=== PATIENT | male | born 1945 | race Caucasian/White ===

== ENCOUNTER 2019-11-20 15:37 | Inpatient (IN) | payer OTHER, MEDICARE ==
[~2019-11-20] VITALS: Ht 182.9 cm; Wt 70.2 kg
[2019-11-20 16:07] LABS: BASOPHILS ABSOLUTE AUTO 0.04 K/mm3 (0.00-0.23); BASOPHILS PERCENT AUTO 0 % (0-2); EOSINOPHILS ABSOLUTE AUTO 0.02 K/mm3 (0.00-0.68); EOSINOPHILS PERCENT AUTO 0 % (0-6); Hematocrit 49.3 % (37.0-53.0); Hemoglobin 15.8 g/dL (13.5-17.5); IMMATURE GRAN ABSOLUTE AUTO 0.07 K/mm3 (0.00-0.10); IMMATURE GRAN PERCENT AUTO 1 % (0-1); LYMPHOCYTES ABSOLUTE AUTO 0.61 K/mm3 (0.84-5.20); LYMPHOCYTES PERCENT AUTO 4 % (21-46); MONOCYTES ABSOLUTE AUTO 1.14 K/mm3 (0.16-1.47); MONOCYTES PERCENT AUTO 8 % (4-13); Mean Corpuscular HGB 29.7 pg (26.0-34.0); Mean Corpuscular Volume 93 fL (80-100); Mean Platelet Volume 12.2 fL (9.1-12.4); NEUTROPHILS ABSOLUTE AUTO 13.37 K/mm3 (1.96-9.15); NEUTROPHILS PERCENT AUTO 88 % (41-73); Platelet Count 197 K/mm3 (150-400); RDW Coefficient Variation 12.8 % (11.7-14.2); RDW Standard Deviation 43.7 fL (35.1-46.3); Red Blood Cell Count 5.32 M/mm3 (4.30-5.90); White Blood Cell Count 15.25 K/mm3 (4.00-11.30)
[2019-11-20 16:21] LABS: Alanine Aminotransfer (ALT/SGP 25 U/L (12-78); Albumin, Blood 3.6 g/dL (3.4-5.0); Albumin/Globulin Ratio 0.8 (0.8-1.8); Alk Phos 130 U/L (50-136); Anion Gap 6 mmol/L (6-16); Aspartate Aminotrans (AST/SGOT 14 U/L (12-37); Blood Urea Nitrogen 17 mg/dL (8-24); Bun/Creatinine Ratio 10.4 (12.0-20.0); CO2, Blood 22 mmol/L (21-32); Calcium, Blood 10.5 mg/dL (8.5-10.1); Chloride, Blood 111 mmol/L (98-108); Creatinine, Blood 1.63 mg/dL (0.60-1.20); Globulin, Blood 4.4 g/dL (2.2-4.0); Glomerular Filtration Rate 44 (60-); Glucose, Blood 252 mg/dL (70-99); Potassium, Blood 3.9 mmol/L (3.5-5.5); Sodium, Blood 139 mmol/L (136-145); Troponin I <0.015 ng/mL (0.000-0.040)
[2019-11-20 17:00] LABS: Source, Urine Clean Catch
[2019-11-20 17:04] LABS: Bilirubin, Urine Neg (Neg); Blood, Urine 5+ (Neg); Glucose Qualitative, Urine Neg (Neg); Ketones, Urine Neg (Neg); Leukocyte Esterase, Urine 3+ (Neg); Nitrite, Urine Neg (Neg); Protein, Urine 3+ (Neg); Specific Gravity, Urine 1.005 (1.003-1.022); Urobilinogen, Urine NORM (Normal)
[2019-11-20 17:13] LABS: Appearance, Urine Hazy (Clear); Color, Urine Yellow (P-Yellow)
[2019-11-20 17:16] LABS: Bacteria Few /hpf; Squamous Epithelial Cells Few /hpf (Few); White Blood Cells, Urine 50-100 /hpf (0-5)
[2019-11-20] MEDS ORDERED: Aspir 8181 MG PO (17:42)
[2019-11-20] MEDS ORDERED: Vitamin D2000 UNIT PO (17:44)
[2019-11-20] MEDS ORDERED: ATOR40TA PO (17:44)
[2019-11-20] MEDS ORDERED: B-121000 MC3 PO (17:45)
[2019-11-20] MEDS ORDERED: CYCLOBENZAPRINE5 MG PO (17:46)
[2019-11-20] MEDS ORDERED: LEVSOD25 PO (17:47)
[2019-11-20] MEDS ORDERED: Lithium Carbon150 MG PO (17:47)
[2019-11-20] MEDS ORDERED: LITH300C PO (17:47)
[2019-11-20] MEDS ORDERED: MIRT15 PO (17:48)
[2019-11-20] MEDS ORDERED: CLOTRIMAZOLE10 ML TOP (17:49)
[2019-11-20] MEDS ORDERED: Triple Antibio1 EACH TOP (17:51)
[2019-11-20 20:23] LABS: Lithium 0.36 mmol/L (0.60-1.20)
--- NOTE | 2019-11-21 04:26 | NUR ---
SHIFT SUMMARY- PT. ARRIVED FROM ED VIA STRETCHER. CONFUSED AND UNABLE TO ANSWER QUESTIONS. SPOKE WITH VIA PHONE TO GATHER HISTORY. PT. WITH TMEP OF 101.4 LAST NIGHT AND ELEVATED HR. PT. NOT ORIENTED ENOUGH TO SWALLOW PILLS. NOTIFIED THERESA PACHECO BOOK SEWING MACHINE OPERATOR. RECEIVED ORDER FOR FLUID BOLUS AND TYLENOL SUPP. PT. WEAK, Q2 TURNS. SUPRAPUBIC CATHETER IN PLACE, DRAINING WELL. IV FLUIDS INFUSING. CALL LIGHT WITHIN REACH, SIDE RAILS UP X3, AND BED ALARM ON FOR SAFETY. WILL CONT TO MONITOR.
[2019-11-21 05:42] LABS: BASOPHILS ABSOLUTE AUTO 0.04 K/mm3 (0.00-0.23); BASOPHILS PERCENT AUTO 0 % (0-2); EOSINOPHILS ABSOLUTE AUTO 0.01 K/mm3 (0.00-0.68); EOSINOPHILS PERCENT AUTO 0 % (0-6); Hematocrit 43.4 % (37.0-53.0); Hemoglobin 13.6 g/dL (13.5-17.5); IMMATURE GRAN ABSOLUTE AUTO 0.04 K/mm3 (0.00-0.10); IMMATURE GRAN PERCENT AUTO 0 % (0-1); LYMPHOCYTES ABSOLUTE AUTO 1.22 K/mm3 (0.84-5.20); LYMPHOCYTES PERCENT AUTO 12 % (21-46); MONOCYTES ABSOLUTE AUTO 1.12 K/mm3 (0.16-1.47); MONOCYTES PERCENT AUTO 11 % (4-13); Mean Corpuscular HGB 29.6 pg (26.0-34.0); Mean Corpuscular HGB Conc 31.3 g/dL (31.5-36.5); Mean Corpuscular Volume 95 fL (80-100); Mean Platelet Volume 12.5 fL (9.1-12.4); NEUTROPHILS ABSOLUTE AUTO 7.44 K/mm3 (1.96-9.15); NEUTROPHILS PERCENT AUTO 75 % (41-73); Platelet Count 168 K/mm3 (150-400); RDW Standard Deviation 45.2 fL (35.1-46.3); Red Blood Cell Count 4.59 M/mm3 (4.30-5.90); White Blood Cell Count 9.87 K/mm3 (4.00-11.30)
[2019-11-21 06:07] LABS: Bun/Creatinine Ratio 11.4 (12.0-20.0); Creatinine, Blood 1.67 mg/dL (0.60-1.20); Potassium, Blood 4.6 mmol/L (3.5-5.5)
--- NOTE | 2019-11-21 10:00 | NUR ---
PT ATTEMPTING TO CLIMB OUT OF BED. TRIED TO REDIRECT BACK TO BED BUT PT REFUSED TO BE REDIRECTED STATING HE WAS GOING HOME AND HE COULD COME BACK ANOTHER TIME TO GET TREATMENT. MANAGED TO GET PT TO SIT IN CHAIR AND FINISH EATING HIS BREAKFAST. NO S/S ASPIRATION OR COUGHING WITH INTAKE.
--- NOTE | 2019-11-21 12:15 | NUR ---
PT SPOKE WITH THIS MORNING AND BECAME VERY UPSET THAT SHE WOULDN'T COME PICK HIM UP. RN PSYCHIATRIC IN TO SEE PT AND WAS MADE NPO. PT UPSET HE IS UNABLE TO DRINK ANY FLUIDS. ZYPREXA GIVEN EARLIER AND IT DOESN'T APPEAR TO BE EFFECTIVE AT THIS TIME. IV FLUIDS STARTED. STILL SITTING IN CHAIR. EXPLAINED TO PT FLUIDS NEED TO RUN INTO HIS IV AND NEEDS TO STAY THERE. PT PERSISTANTLY TALKING ABOUT STAFF SCAMMING HIM AND HE IS GOING TO DIVORCE HIS BECAUSE SHE WON'T PICK HIM UP. PARANOID THAT WE ARE TRYING TO GIVE HIM SOMETHING TO "PUT HIM OUT" WHILE GIVING INSULIN. NO THREATENING OR LOUD BEHAVIOR.
--- NOTE | 2019-11-21 16:30 | NUR ---
PT HAS BEEN MOVING ABOUT IN ROOM INDEPENDENTLY DESPITE UNSTEADY GAIT. HAS GONE UP TO THE SINK SEVERAL TIMES AND DRANK WATER FROM [employer] WITH HIS HAND. NO S/S OF ASPIRATION DURING THESE EPISODES. DISCOURAGED FROM DRINKING FROM [employer] BUT UNABLE TO DISUADE BEHAVIOR. IV ACCIDENTALLY PULLED OUT WHILE GETTING UP. BECAME MORE UPSET AND DIFFICULT TO REDIRECT WITH BLOOD ON FLOOR AND ATTEMPTING TO STOP THE BLEEDING SITE. ASSISTED WITH CLEANING HIM UP AND CHANGING HIS BED-HE HAD BEEN SITTING ON SIDE OF BED MOST OF AFTERNOON. ENCOURAGED HIM TO LAY DOWN AND TAKE A NAP BUT HE CONTINUED TO ESCALATE IN HIS BEHAVIOR AND SAYING HE WAS GOING TO LEAVE. PUSHED HIS WAY OUT THE ROOM DOOR. 2 STAFF WALKED WITH PT TO WINDOW WITH HIM SAYING JUST LEAVE ME ALONE. MANAGED TO GET PT TO SIT IN RECLINER CHAIR IN HALLWAY AND PLACED A VANESA VEST RESTRAINT. MD CALLED AFTER RESTRAINT PLACED.
--- NOTE | 2019-11-21 18:45 | NUR ---
SHIFT SUMMARY PT HAS BEEN SITTING IN RECLINER CHAIR SINCE RESTRAINT PLACED. HAS BEEN QUIET WITH HIS LEGS CROSSED AT THE KNEE. NEW IV STARTED AND WAS COOPERATIVE WITH CARE. TALKING TO ANOTHER PT ABOUT WHATS BEEN GOING ON. SPOKE WITH ON THE PHONE ABOUT UPDATED SITUATION.
--- NOTE | 2019-11-22 04:44 | NUR ---
SHIFT SUMMARY CONTINUES TO ATTEMPT TO GET OUT OF BED A HIGH FALL RISK, NON RECEPTIVE TO REDIRECTION. VEST REATRAINT CONTINUED FROM LAST SHIFT. LATER IN SHIFT, ATEMPTED TO PULL OUT SUPRAPUBIC CATH, NOTIFIED AND PUT IN BILAT WRIST RESTRAINTS WELL FOR SAFETY/MEDICAL REASONS. IVF INFUSED AND DISCONNECTED FROM THE TUBING HE WAS PULLING AT THAT WELL. CURRENTLY STARING AT CEILING. CALL LIGHT IN REACH. CAMERA OBS CONTINUES.
[2019-11-22 05:22] LABS: BASOPHILS ABSOLUTE AUTO 0.04 K/mm3 (0.00-0.23); BASOPHILS PERCENT AUTO 0 % (0-2); EOSINOPHILS PERCENT AUTO 1 % (0-6); Hematocrit 44.2 % (37.0-53.0); Hemoglobin 13.9 g/dL (13.5-17.5); IMMATURE GRAN ABSOLUTE AUTO 0.02 K/mm3 (0.00-0.10); IMMATURE GRAN PERCENT AUTO 0 % (0-1); LYMPHOCYTES ABSOLUTE AUTO 1.03 K/mm3 (0.84-5.20); LYMPHOCYTES PERCENT AUTO 12 % (21-46); MONOCYTES ABSOLUTE AUTO 0.91 K/mm3 (0.16-1.47); MONOCYTES PERCENT AUTO 10 % (4-13); Mean Corpuscular HGB 29.5 pg (26.0-34.0); Mean Corpuscular HGB Conc 31.4 g/dL (31.5-36.5); Mean Corpuscular Volume 94 fL (80-100); Mean Platelet Volume 12.2 fL (9.1-12.4); NEUTROPHILS PERCENT AUTO 77 % (41-73); Platelet Count 196 K/mm3 (150-400); RDW Coefficient Variation 12.8 % (11.7-14.2); RDW Standard Deviation 44.6 fL (35.1-46.3); Red Blood Cell Count 4.71 M/mm3 (4.30-5.90)
[2019-11-22 05:38] LABS: Bun/Creatinine Ratio 14.7 (12.0-20.0); Calcium, Blood 11.1 mg/dL (8.5-10.1); Creatinine, Blood 1.63 mg/dL (0.60-1.20); Potassium, Blood 3.9 mmol/L (3.5-5.5)
[2019-11-22 11:56] LABS: Lithium 0.46 mmol/L (0.60-1.20)
--- NOTE | 2019-11-22 19:39 | NUR ---
SHIFT SUMMARY: NO ACUTE CHANGES TO REPORT THIS SHIFT. PT ALERT; ORIENTED TO SELF; CONFUSED; DESIRES TO LEAVE. CAMERA ON FOR SAFETY; BILATERAL SOFT WRIST RESTRAINTS & VANESA VEST ON. SUPRA-PUBIC CATHETER IN PLACE; PATENT & DRAINING. ABX & FLUIDS CONTINUING. REPORT GIVEN TO ONCOMING RN.
--- NOTE | 2019-11-22 22:07 | NUR ---
PT WAS COMPULSIVE AND CUSSING AT STAFF AFTER WE ASSISTED PT BACK TO BED FROM THE RECLINER. PT KEEPS TUGGING AT WRIST RESTRAINTS AND ATTEMPTING TO GET OUT OF BED WITH BOTH FEET OVER THE RAILINGS MULTIPLE TIMES. PT'S IV IN LEFT WRIST AREA HAS STOPPED WORKING. ZYPREXA IM GIVEN. WILL ATTEMPT NEW IV WHEN PT HAS CALMED DOWN. WILL CONTINUE TO MONITOR.
[2019-11-23 05:07] LABS: Bun/Creatinine Ratio 17.6 (12.0-20.0); Calcium, Blood 11.6 mg/dL (8.5-10.1); Creatinine, Blood 1.82 mg/dL (0.60-1.20); Potassium, Blood 3.8 mmol/L (3.5-5.5)
--- NOTE | 2019-11-23 05:33 | NUR ---
DEEP WELL CONTRACTOR SUMMARY PT HAS BEEN AGGITATED ALL NIGHT DESPITE MEDICATION. PT WAS GIVEN ZYPREXA IM WHICH PT DID NOT TOLERATE WELL HE CUSSES AND KICKED HIS LEGS AT STAFF. ME AND 2 OTHER STAFF MEMBERS WERE NEEDED TO ASSIST PT WITH INJECTION. HOSPITALIST DR. HELLER NOTIFIED OF PT'S BEHAVIOR. IM HALDOL ORDERED. IM HALDOL 0.2ML GIVEN WHICH DID NOT HELP WITH AGITATION. PT WAS NOT ABLE TO TAKE SCHEDULED MEDS HE WAS COMBATIVE AND AGGITATED. PT HAD A NON-PATENT TOWARDS BEGINNING OF SHIFT. IV WAS PUT IN AT 0435 WHEN PT HAS CALMED DOWN A LITTLE. IN RIGHT FOREARM. DEXTROSE 5% CONTINUED.
--- NOTE | 2019-11-23 17:07 | NUR ---
PT HAS BEEN AOX1 AND VERY TIRED. PT HAD A VERY ROUGH NIGHT LAST NIGHT AND WAS GIVEN AN IM HALDOL. SINCE THIS PT HAS BEEN SLEEPING HEAVILY. PT WILL AROUSE, BUT THEN GOES TO SLEEP IMMEDIATELY. NO DISTESS NOTED TO DAY. WILL CONTIUE TO MONITOR.
--- NOTE | 2019-11-24 05:22 | NUR ---
PT HAS DONE VERY WELL THROUGHOUT THE NIGHT. PT SLEPT MOST OF THE NIGHT. WHEN NOT ASLEEP, PT LAYS WITH EYES OPEN QUIETLY. PO FLUIDS TAKEN WHILE PT IS AWAKE. MUMBLED SPEECH. VSS.
[2019-11-24 05:33] LABS: Bun/Creatinine Ratio 17.8 (12.0-20.0); Calcium, Blood 10.2 mg/dL (8.5-10.1); Creatinine, Blood 1.57 mg/dL (0.60-1.20); Potassium, Blood 3.2 mmol/L (3.5-5.5)
[2019-11-24] MEDS ORDERED: NICO21TP TOP (15:36)
[2019-11-24] MEDS ORDERED: QUET100 PO (15:37)
[2019-11-24] MEDS ORDERED: Seroquel Xr50 MG PO (15:38)
[2019-11-24] MEDS ORDERED: LEVFLO500 PO (15:38)
--- NOTE | 2019-11-24 16:28 | NUR ---
PT WAS DOING MUCH BETTER TODAY. PT AOX3 AND COOPERATIVE OF CARE. PT WAS TALKING AND VISITING A LOT. PT WORKED WITH PT AND WAS UP WITH WALKER AMBULATING. NO DISTRESS TODAY AND PLEASANT TO WORK WITH. PT WAS ESCORTED VIA WHEELCHAIR OUT TO ENTRANCE. ALL PAPERWORK, MEDICATIONS AND EDUCATIONAL MATERIAL WAS REVIEWED. PERSONAL BELONGINGS WERE WITH PT. THIS ADULT LITERACY INSTRUCTOR REVIEWED WITH AND HELPED PT IN TO CAR. [facility].
== END 2019-11-24 16:07 | disposition home health service (06) | DRG 698 ==
LOC: ER 15:37 → EDBEDREQ 19:51 → EDBEDREQSVC 19:51 → EDBEDREQTM 19:51 → MEDS 19:56 → ERHOLD 19:56 → MEDS 20:57
PROVIDERS: Internal Medicine; Nurse Practitioner Acute Care; Physician Assistant; ADMIT Hospitalist
DX: T83.511A Infection and inflammatory reaction due to indwelling urethral catheter, initial encounter (principal); A41.51 Sepsis due to Escherichia coli [E. coli]; G92 Toxic encephalopathy; A41.81 Sepsis due to Enterococcus; E87.0 Hyperosmolality and hypernatremia; E46 Unspecified protein-calorie malnutrition; F31.89 Other bipolar disorder; F02.81 Dementia in other diseases classified elsewhere, unspecified severity, with behavioral disturbance; I69.354 Hemiplegia and hemiparesis following cerebral infarction affecting left non-dominant side; G30.9 Alzheimer's disease, unspecified; N39.0 Urinary tract infection, site not specified; N18.3 Chronic kidney disease, stage 3 (moderate); E11.22 Type 2 diabetes mellitus with diabetic chronic kidney disease; E03.9 Hypothyroidism, unspecified; E78.5 Hyperlipidemia, unspecified; F43.10 Post-traumatic stress disorder, unspecified; Z78.1 Physical restraint status; R29.6 Repeated falls; F17.210 Nicotine dependence, cigarettes, uncomplicated; Z68.21 Body mass index [BMI] 21.0-21.9, adult; Z79.82 Long term (current) use of aspirin
CPT/HCPCS: 36415; 51705; 71045; 80048; 80053; 80178; 81001; 82947; 83036; 83605; 83930; 83935; 84295; 84443; 84484; 85025; 87040; 87070; 87077; 87086; 87186; 87205; 92526; 92610; 93005; 93010; 96365-59; 96367-59; 96372-59; 96375-59; 97116; 97162; 97530; 99285-25; A9270; A9270-GY; C2627; J0696; J1630; J1650; J2405; J3480; J7030; J7070

== ENCOUNTER → 2024-04-14 | Outpatient (CLI) | payer OTHER ==
[~2024-04-14] MED LIST: ATOR40TA PO; Aspir 8181 MG PO; B-121000 MC3 PO; CLOTRIMAZOLE10 ML TOP; CYCLOBENZAPRINE5 MG PO; LEVFLO500 PO; LEVSOD25 PO; LITH300C PO; Lithium Carbon150 MG PO; MIRT15 PO; NICO21TP TOP; QUET100 PO; Seroquel Xr50 MG PO; Triple Antibio1 EACH TOP; Vitamin D2000 UNIT PO
[2024-04-14 12:53] LABS: Creatinine Urine 65.1 mg/dL (27.00-270.00); Microalbumin, Urine Quant. 13.3 mg/L (0.000-20.000); Protein, Urine Quantitative 13.7 mg/dL (0.0-11.9)
== END | disposition home or self-care (01) ==
LOC: LAB SHORT 08:00 → LAB 08:00
PROVIDERS: Internal Medicine Nephrology
DX: N18.4 Chronic kidney disease, stage 4 (severe) (principal); D63.1 Anemia in chronic kidney disease; N25.81 Secondary hyperparathyroidism of renal origin; E29.1 Testicular hypofunction; E55.9 Vitamin D deficiency, unspecified; R76.9 Abnormal immunological finding in serum, unspecified; R94.5 Abnormal results of liver function studies; R94.6 Abnormal results of thyroid function studies
CPT/HCPCS: 81050; 82043; 82570; 84156

== ENCOUNTER → 2025-06-08 | Outpatient (CLI) | payer OTHER | END | disposition home or self-care (01) | LOC: LAB SHORT 15:51 → LAB 15:51 | DX: N39.0 Urinary tract infection, site not specified (principal) | CPT/HCPCS: 87086 ==